=== PATIENT | female | born 1960 | race Caucasian/White ===

== ENCOUNTER 2017-11-04 12:05 | Emergency (ER) | payer OTHER ==
[2017-11-04 12:10] VITALS: BP 123/55; PULSE 104; TEMP 98.1; BMI 32.3
[2017-11-04] MEDS ORDERED: KETOROLAC TROMETHAMINE 60 MG/2 ML VIAL IM ONE (12:59)
[2017-11-04] MEDS ORDERED: KETOROLAC TROMETHAMINE 60 MG/2 ML VIAL ONE (13:05)
--- NOTE | 2017-11-04 13:07 | PDOC ---
History of Present Illness - General Chief Complaint: Back Pain Stated Complaint: FALL/ BACK PAIN Time Seen by Provider: 11/04/17 12:22 History Source: Patient Exam Limitations: No Limitations - History of Present Illness Initial Comments: 11/04/17 13:02 Patient states slipped and fell onto her buttocks last week and since that time has had progressive worsening of pain in her coccyx. Denies numbness or tingling to feet, denies whether injury. Has used ibuprofen with minimal resolved Occurred: reports: last week Associated Symptoms (Fall): denies symptoms Past History - Travel Traveled outside of the country in the last 30 days: No Close contact w/someone who was outside of country & ill: No - Past Medical History Allergies/Adverse Reactions: Allergies Allergy/AdvReac Type Severity Reaction Status Date / Time No Known Allergies Allergy Verified 11/04/17 12:10 Home Medications: Ambulatory Orders Amlodipine Besylate [Norvasc -] 5 mg PO DAILY 09/18/15 Amox-Tr/K Cl [Augmentin - 875Mg Tablet] 1 tab PO BID #14 tablet 09/18/15 Biotin [Nail-Ex] 5,000 mcg PO DAILY 09/18/15 Lisinopril [Prinivil -] 40 mg PO DAILY 09/18/15 COPD: Yes GI Disorders: Yes (ACID REFLUX) HTN: Yes - Surgical History Appendectomy: Yes - Suicide/Smoking/Psychosocial Hx Smoking Status: Yes Smoking History: Current every day smoker Have you smoked in the past 12 months: Yes Number of Cigarettes Smoked Daily: 10 Information on smoking cessation initiated: Yes 'Breaking Loose' booklet given: 11/04/17 Hx Alcohol Use: Yes (occasional) Drug/Substance Use Hx: No Substance Use Type: None *Physical Exam - Vital Signs Last Vital Signs Temp Pulse Resp BP Pulse Ox 98.1 F 104 H 19 123/55 98 11/04/17 12:08 11/04/17 12:08 11/04/17 12:08 11/04/17 12:08 11/04/17 12:08 - Physical Exam General Appearance: Yes: Appropriately Dressed, Apparent Distress, Mild Distress HEENT: positive: YARELI, Normal ENT Inspection, TMs Normal, Pharynx Normal Neck: positive: Supple. negative: Tender Respiratory/Chest: negative: Chest Tender Musculoskeletal: positive: Normal Inspection, Vertebral Tenderness (he shouldn' t with exquisite point tenderness deep lower coccyx area without obvious crepitus or step-offs. Range of motion is limited secondary to the same pain. Illnesses stable, patient is ambulatory slowly) Extremity: positive: Normal Capillary Refill, Normal Inspection Integumentary: positive: Normal Color, Dry, Warm Neurologic: positive: portable irrigation operator II-XII NML intact, Fully Oriented, Alert, Normal Mood/ Affect, Normal Response, Motor Strength 5/5 Progress Note - Progress Note Progress Note: Conservative measures. All clinical indication of a fractured tailbone *DC/Admit/Observation/Transfer Diagnosis at time of Disposition: Fracture of coccyx Qualifiers: Encounter type: initial encounter Fracture type: closed Qualified Code(s): S32.2XXA - Fracture of coccyx, initial encounter for closed fracture - Discharge Dispostion Disposition: HOME Condition at time of disposition: Stable Admit: No - Referrals Referrals: Boby Croft MD [Primary Care Provider] - - Patient Instructions Printed Discharge Instructions: DI for Coccyx Fracture Additional Instructions: Rest, avoid heavy lifting or strenuous activity until pain resolves Ice To area Donut pillow To sit on to help relieve pressure on tailbone May use ibuprofen for pain relief - Post Discharge Activity Forms/Work/School Notes: Back to Work
== END 2017-11-04 13:10 | disposition home or self-care (01) ==
LOC: JERFT 12:05
PROC: 3E0233Z Introduction of Anti-inflammatory into Muscle, Percutaneous Approach (ICD-10-PCS; principal; 2017-11-04)
DX: S32.2XXA Fracture of coccyx, initial encounter for closed fracture (principal); W01.0XXA Fall on same level from slipping, tripping and stumbling without subsequent striking against object, initial encounter; Y93.89 Activity, other specified; Y92.89 Other specified places as the place of occurrence of the external cause; Y99.8 Other external cause status; I10 Essential (primary) hypertension; K21.9 Gastro-esophageal reflux disease without esophagitis; J44.9 Chronic obstructive pulmonary disease, unspecified; F17.210 Nicotine dependence, cigarettes, uncomplicated
CPT/HCPCS: 99281-25

== ENCOUNTER 2018-04-03 05:55 | Inpatient (IN) | payer OTHER ==
--- NOTE | 2018-04-03 06:19 | PDOC ---
History of Present Illness - General Chief Complaint: Injury Stated Complaint: RIGHT ANKLE INJURY Time Seen by Provider: 04/03/18 05:59 History Source: Patient Exam Limitations: No Limitations - History of Present Illness Initial Comments: 04/03/18 06:13 57f with pmh of left ankle repair presents to the ED bibems after trip and fall in her home when she felt her right ankle twist and crack. She went to bed and tried to sleep it off "like a true Irishwoman". When she woke up, she tried to bear weight on her ankle and immediately collapsed, unable to support any weight on the now discombobulated joint. 04/03/18 06:19 Past History - Past Medical History Allergies/Adverse Reactions: Allergies Allergy/AdvReac Type Severity Reaction Status Date / Time No Known Allergies Allergy Verified 04/03/18 06:09 Home Medications: Ambulatory Orders Amlodipine Besylate [Norvasc -] 5 mg PO DAILY 09/18/15 Amox-Tr/K Cl [Augmentin - 875Mg Tablet] 1 tab PO BID #14 tablet 09/18/15 Biotin [Nail-Ex] 5,000 mcg PO DAILY 09/18/15 Lisinopril [Prinivil -] 40 mg PO DAILY 09/18/15 COPD: Yes GI Disorders: Yes (ACID REFLUX) HTN: Yes - Surgical History Appendectomy: Yes - Suicide/Smoking/Psychosocial Hx Smoking Status: Yes Smoking History: Never smoked Have you smoked in the past 12 months: No Number of Cigarettes Smoked Daily: 10 Information on smoking cessation initiated: No 'Breaking Loose' booklet given: 11/04/17 Hx Alcohol Use: No Drug/Substance Use Hx: No Substance Use Type: None *Physical Exam - Vital Signs Last Vital Signs Temp Pulse Resp BP Pulse Ox 97.7 F 85 18 141/86 98 04/03/18 05:55 04/03/18 05:55 04/03/18 05:55 04/03/18 05:55 04/03/18 05:55 ED Treatment Course - RADIOLOGY Radiology Studies Ordered: Category Date Time Status ANKLE-RIGHT [RAD] Stat Radiology 04/03/18 06:12 Ordered Medical Decision Making - Medical Decision Making 04/03/18 06:49 PAin declines pain medication, Ankle x-ray positive for communited, mildy displaced tib-fib ankle fracture. Paged Orthopedic surgeon Dr. Quiroz. Edgar Iglesiasadi, will call back at 8am. 04/03/18 07:13 Patient signed out to Dr. Smith. *DC/Admit/Observation/Transfer Diagnosis at time of Disposition: Fracture of right tibia and fibula - Discharge Dispostion Condition at time of disposition: Fair - Referrals - Patient Instructions - Post Discharge Activity
--- NOTE | 2018-04-03 06:57 | PDOC ---
Attending Attestation - Resident Resident Name: Mark Siddiqi - ED Attending Attestation I have performed the following: I have examined & evaluated the patient, The case was reviewed & discussed with the resident, I agree w/resident's findings & plan - HPI HPI: 04/03/18 06:57 57 YOF with HTN, prior smoker p/w trip and fall, twist to right foot with swelling and progressive pain. unable to ambulate - Physicial Exam PE: 04/03/18 06:54 General: NAD, well appearing Vascular: 2+ DP pulses symmetric and equal. Focused MSK/Neuro Exam notable for soft compartments, +Right ankle,lat/medial malleolar and diffuse ecchymosis, tenderness and swelling; Cap refill <2 sec. Proximal and distal strength 5/5, - equal and symmetric. Plantar flexion and dorsiflexion 5/5. ROM limited 2/2 pain and swelling. Sensation grossly intact to light touch over tibial and peroneal nerves. No calf tenderness. no prox fibular tenderness Skin: mild ecchymosis to right ankle, warm and well perfused. 04/03/18 07:00 04/03/18 07:13 - Medical Decision Making 04/03/18 06:56 57 YOF with HTN, prior smoker p/w trip and fall, twist to right foot with swelling and progressive pain. unable to ambulate, no weakness, paresthesias. vital signs normal. declines meds XR with right distal tib fib fx, appears as Cadena class B. ortho cs with Dr. Morgan/[facility], awaiting callback admit to Dr Croft. likely operative management given extent of injury. preop labs and Txs ordered. 04/03/18 06:58
--- NOTE | 2018-04-03 07:20 | PDOC ---
*Physical Exam - Vital Signs Last Vital Signs Temp Pulse Resp BP Pulse Ox 97.7 F 85 18 141/86 98 04/03/18 05:55 04/03/18 05:55 04/03/18 05:55 04/03/18 05:55 04/03/18 05:55 04/03/18 07:19 Continuation of care from Dr. Siddiqi. Spoke to Dr. Croft's nurse practitioner who will admit Ms. Mendez to obs. 04/03/18 10:[address] Quiroz. He states she will have surgery tomorrow. Will have a posterior splint applied with elevation of the right ankle. ED Treatment Course - LABORATORY CBC & Chemistry Diagram: 04/03/18 09:20 04/03/18 07:18 Medical Decision Making - Medical Decision Making 04/03/18 07:20 Awaiting call back from Dr. Quiroz regarding consult. *DC/Admit/Observation/Transfer Diagnosis at time of Disposition: Trimalleolar fracture Qualifiers: Encounter type: initial encounter Fracture type: closed Laterality: right Qualified Code(s): S82.851A - Displaced trimalleolar fracture of right lower leg , initial encounter for closed fracture - Discharge Dispostion Decision to Admit order: Yes - Referrals Referrals: Boby Croft MD [Primary Care Provider] - - Patient Instructions - Post Discharge Activity
[2018-04-03] MEDS ORDERED: morphine CARPU-JECT 2 MG/1 ML DISP.SYRIN IVPUSH ONE ×2 (07:35→11:02)
[2018-04-03] MEDS ORDERED: MORPHINE SULFATE 2 MG/ML VIAL ONE ×2 (07:37→11:33)
[2018-04-03 07:50] LABS: INR 1.01 (0.83-1.09); PROTHROMBIN TIME (PATIENT) 11.4 SEC (9.7-13.0)
[2018-04-03 07:52] LABS: ACTIVATED PTT 25.6 SECONDS (25.2-36.5)
[2018-04-03 07:53] LABS: ALBUMIN 4.2 g/dl (3.4-5.0); ANION GAP 14 (8-16); BILIRUBIN,TOTAL 0.2 mg/dL (0.2-1.0); BLOOD UREA NITROGEN 24 mg/dL (7-18); CHLORIDE 99 mmol/L (98-107); CO2 26 mmol/L (21-32); CREATININE 1.3 mg/dL (0.55-1.02); GLUCOSE,RANDOM 113 mg/dL (74-106); SGPT/ALT 79 U/L (12-78); SODIUM 139 mmol/L (136-145); TOT PROT 8.1 g/dl (6.4-8.2)
[2018-04-03 07:54] LABS: ALK PHOS 70 U/L (45-117)
[2018-04-03 08:00] LABS: POTASSIUM 4.3 mmol/L (3.5-5.1); SGOT/AST 79 U/L (15-37)
[2018-04-03] MEDS ORDERED: ACETAMINOPHEN 325 MG TABLET (FP) PO PRN (09:11)
[2018-04-03] MEDS ORDERED: traMADol HCL 50 MG TABLET PO PRN (09:11)
[2018-04-03] MEDS ORDERED: DOCUSATE SODIUM 100 MG CAPSULE (FP) PO PRN (09:11)
--- NOTE | 2018-04-03 09:15 | HP ---
Admitting History and Physical - Primary Care Physician PCP: Boby Croft - Admission Chief Complaint: Right ankle trauma History of Present Illness: 57f with pmh of left ankle repair presents to the ED bibems after trip and fall in her home when she felt her right ankle twist and crack. She went to bed and tried to sleep it off "like a true Irishwoman". When she woke up, she tried to bear weight on her ankle and immediately collapsed, unable to support any weight on the now discombobulated joint. History Source: Patient, Medical Record Limitations to Obtaining History: No Limitations - Smoking History Smoking history: Never smoked Have you smoked in the past 12 months: No Aproximately how many cigarettes per day: 10 - Alcohol/Substance Use Hx Alcohol Use: No Home Medications - Allergies Allergies/Adverse Reactions: Allergies Allergy/AdvReac Type Severity Reaction Status Date / Time No Known Allergies Allergy Verified 04/03/18 06:09 - Home Medications Home Medications: Ambulatory Orders Amlodipine Besylate [Norvasc -] 5 mg PO DAILY 09/18/15 Lisinopril [Prinivil -] 40 mg PO DAILY 09/18/15 Omeprazole 40 mg PO DAILY 04/03/18 Review of Systems - Review of Systems Constitutional: reports: No Symptoms Eyes: reports: No Symptoms HENT: reports: No Symptoms Neck: reports: No Symptoms Cardiovascular: reports: No Symptoms Respiratory: reports: No Symptoms Gastrointestinal: reports: No Symptoms Genitourinary: reports: No Symptoms Breasts: reports: No Symptoms Reported Musculoskeletal: reports: Joint Pain (right ankle) Integumentary: reports: No Symptoms Neurological: reports: No Symptoms Endocrine: reports: No Symptoms Hematology/Lymphatic: reports: No Symptoms Physical Examination Vital Signs: Vital Signs Temperature 97.7 F 04/03/18 05:55 Pulse Rate 85 04/03/18 05:55 Respiratory Rate 18 04/03/18 05:55 Blood Pressure 141/86 04/03/18 05:55 O2 Sat by Pulse Oximetry (%) 98 04/03/18 05:55 Constitutional: Yes: Well Nourished, No Distress, Calm, Obese Cardiovascular: Yes: Regular Rate and Rhythm Respiratory: Yes: Regular Gastrointestinal: Yes: Normal Bowel Sounds, Soft Musculoskeletal: Yes: Joint Swelling (right ankle) Extremities: Yes: WNL Labs: CBC, BMP 04/03/18 07:18 04/03/18 07:18
[2018-04-03 09:37] LABS: BASO % 0.7 % (0-2.0); EOS % 0.5 % (0-4.5); HEMATOCRIT 34.7 % (32.4-45.2); HEMOGLOBIN 11.5 GM/dL (10.7-15.3); LYMPH % 27.1 % (8-40); MCH 26.4 pg (25.7-33.7); MEAN CELL VOLUME 79.9 fl (80-96); MEAN PLT VOLUME 8.3 fl (7.5-11.1); MONO % 7.5 % (3.8-10.2); NEUT % 64.2 % (42.8-82.8); PLATELET COUNT 221 K/MM3 (134-434); RBC 4.34 M/mm3 (3.60-5.2); RDW 20.4 % (11.6-15.6); WHITE BLOOD COUNT 9.3 K/mm3 (4.0-10.0)
[2018-04-03] MEDS: DEXTROSE 5%-0.45% SALINE 1,000 ML IV SCH ×2 (09:40→22:24)
[2018-04-03] MEDS ORDERED: PANTOPRAZOLE SODIUM 40 MG in SODIUM CHLORIDE 100 ML IVPB SCH (10:00)
[2018-04-03] MEDS ORDERED: LISINOPRIL 20 MG TABLET (FP) ONE (11:05)
[2018-04-03] MEDS ORDERED: PANTOPRAZOLE SODIUM 40 MG/100 ML BAG IVPB ONE (11:05)
[2018-04-03] MEDS ORDERED: amLODIPine BESYLATE 5 MG TABLET (FP) ONE (11:05)
[2018-04-03] MEDS ORDERED: HEPARIN NA (PORCINE) 5,000 UNITS/ML 1ML VIAL ONE (11:06)
[2018-04-03] MEDS: LISINOPRIL 20 MG TABLET (FP) PO SCH (11:13)
[2018-04-03] MEDS: HEPARIN NA (PORCINE) 5,000 UNITS/ML 1ML VIAL SQ SCH ×2 (11:13→22:15)
[2018-04-03] MEDS: PANTOPRAZOLE SODIUM 40 MG VIAL IVPUSH SCH (11:13)
[2018-04-03] MEDS: amLODIPine BESYLATE 5 MG TABLET (FP) PO SCH (11:13)
--- NOTE | 2018-04-03 11:22 | PN ---
Progress Note (short form) - Note Progress Note: Pt seen and examined in the ER. She is a 57 year old female s/p twisting fall this morning, injured right ankle. Ex smoker, stopped after 30 years in October. + h/o HTN. PE RLE is grossly NVI. Good ROM at the right knee, ankle, foot, toes + swelling globally around the right ankle + tender globally around the right ankle Xrays Show a displaced and rotated right ankle bimalleolar fracture Imp 57 year old female with an acute right ankle bimall fracture Rec I spoke to ER staff and rep for PMD about splinting and medical clearance. Strict elevation overnight Will put on the add on schedule for surgery for tomorrow. NPO after midnight tonight.
[2018-04-03] MEDS ORDERED: oxyCODONE HCL 5 MG TABLET ONE (16:14)
[2018-04-03] MEDS: oxyCODONE HCL 5 MG TABLET PO PRN ×2 (16:15→22:15)
[2018-04-03 19:09] VITALS: BMI 35.2
[2018-04-04] MEDS: oxyCODONE HCL 5 MG TABLET PO PRN (07:00)
[2018-04-04 07:58] LABS: BASO % 0.9 % (0-2.0); EOS % 3.1 % (0-4.5); HEMATOCRIT 29.7 % (32.4-45.2); LYMPH % 42.3 % (8-40); MCHC 33.5 g/dl (32.0-36.0); MEAN CELL VOLUME 80.6 fl (80-96); MEAN PLT VOLUME 8.8 fl (7.5-11.1); MONO % 13.6 % (3.8-10.2); NEUT % 40.1 % (42.8-82.8); PLATELET COUNT 165 K/MM3 (134-434); RBC 3.68 M/mm3 (3.60-5.2); RDW 20.4 % (11.6-15.6); WHITE BLOOD COUNT 4.8 K/mm3 (4.0-10.0)
[2018-04-04 08:22] LABS: ANION GAP 7 (8-16); BLOOD UREA NITROGEN 19 mg/dL (7-18); CALCIUM 8.7 mg/dL (8.5-10.1); CHLORIDE 103 mmol/L (98-107); CO2 30 mmol/L (21-32); CREATININE 0.9 mg/dL (0.55-1.02); GLUCOSE,RANDOM 91 mg/dL (74-106); POTASSIUM 3.3 mmol/L (3.5-5.1); SODIUM 140 mmol/L (136-145)
--- NOTE | 2018-04-04 08:36 | PN ---
Progress Note, Physician Chief Complaint: EVENTS AND NOTES REVIEWED PATIENT HAS EGG ALLERGY NO CONTRAINDICATIONS INT HE PAST WITH SURGERY HAS NEVER HAD ANY CARDIAC OR PULMONARY ISSUES H/O TOBACCO USE - Current Medication List Current Medications: Active Medications Acetaminophen (Tylenol -) 650 mg PO Q4H PRN PRN Reason: PAIN OR FEVER Last Admin: 04/03/18 22:17 Dose: 650 mg Amlodipine Besylate (Norvasc -) 5 mg PO DAILY [facility] Last Admin: 04/03/18 11:13 Dose: 5 mg Docusate Sodium (Colace -) 100 mg PO BID PRN PRN Reason: CONSTIPATION Heparin Sodium (Porcine) (Heparin -) 5,000 unit SQ BID [facility] Last Admin: 04/03/18 22:15 Dose: 5,000 unit Dextrose/Sodium Chloride (D5-1/2ns -) 1,000 mls @ 75 mls/hr IV ASDIR [facility] Last Admin: 04/03/18 22:24 Dose: 75 mls/hr Potassium Chloride (Potassium Chloride 10 Meq Premix Ivpb -) 10 meq in 100 mls @ 100 mls/hr IVPB Q60M [facility] Stop: 04/04/18 09:29 Lisinopril (Prinivil) 40 mg PO DAILY [facility] Last Admin: 04/03/18 11:13 Dose: 40 mg Oxycodone HCl (Roxicodone -) 5 mg PO Q6H PRN PRN Reason: PAIN LEVEL 7 - 10 Last Admin: 04/04/18 07:00 Dose: 5 mg Pantoprazole Sodium (Protonix Iv) 40 mg IVPUSH DAILY [facility] Last Admin: 04/03/18 11:13 Dose: 40 mg Tramadol HCl (Ultram -) 50 mg PO Q6H PRN PRN Reason: PAIN LEVEL 4 - 6 Last Admin: 04/03/18 20:00 Dose: 50 mg - Objective Vital Signs: Vital Signs Temperature 97.8 F 04/04/18 06:00 Pulse Rate 85 04/04/18 06:00 Respiratory Rate 17 04/04/18 06:00 Blood Pressure 147/79 04/04/18 06:00 O2 Sat by Pulse Oximetry (%) 95 04/03/18 21:00 Constitutional: Yes: Mild Distress Eyes: Yes: WNL HENT: Yes: WNL Neck: Yes: WNL Cardiovascular: Yes: WNL Respiratory: Yes: WNL Gastrointestinal: Yes: WNL Genitourinary: Yes: WNL Musculoskeletal: Yes: Joint Stiffness Extremities: Yes: Other Edema: No Peripheral Pulses WNL: Yes Integumentary: Yes: WNL Wound/Incision: Yes: Clean/Dry Neurological: Yes: WNL ...Motor Strength: RLE Psychiatric: Yes: WNL Labs: CBC, BMP 04/04/18 07:00 04/04/18 07:00 INR, PTT INR 1.01 (0.83-1.09) 04/03/18 07:18 Problem List - Problems (1) Trimalleolar fracture Code(s): S82.853A - DISPLACED TRIMALLEOLAR FRACTURE OF UNSP LOWER LEG, INIT Qualifiers: Encounter type: initial encounter Fracture type: closed Laterality: right Qualified Code(s): S82.851A - Displaced trimalleolar fracture of right lower leg, initial encounter for closed fracture Assessment/Plan MEDICALLY CLEARED FOR RIGHT ANKLE ORIF NO CONTRAINDICATIONS TO SURGERY HOWEVER WOULD DOCUMENT EGG ALLERGY FORMER TOBACCO USER WILL ORDER NEBS MONITOR ANESTHESIS FOR LUNG H/O SMOKERS DISEASE WITH LUNG NODULE IN PAST THAT WILL NEED OUTPATIENT F/U FOR WITH PULMONARY AND PMD
--- NOTE | 2018-04-04 08:53 | PN ---
Progress Note (short form) - Note Progress Note: Ortho Pt seen and examined- for OR today splint intact, nvi a/p OR NPO d/w Dr. Quiroz
[2018-04-04] MEDS: PANTOPRAZOLE SODIUM 40 MG VIAL IVPUSH SCH ×2 (08:58→10:00)
[2018-04-04] MEDS ORDERED: KCL 10 MEQ IVPB 10 MEQ/100 ML INFUS.BAG IVPB SCH (09:00)
[2018-04-04] MEDS ORDERED: DEXAMETHASONE SOD PHOSPHATE/PF 10 MG/ML SDV ONE (09:12)
[2018-04-04] MEDS ORDERED: ROPIVACAINE HCL 0.5% 30ML VIAL ONE (09:12)
[2018-04-04] MEDS ORDERED: MIDAZOLAM HCL 2 MG/2 ML SINGLE DOSE VIAL ONE ×3 (09:13→11:10)
[2018-04-04] MEDS: DEXTROSE 5%-0.45% SALINE 1,000 ML IV SCH (10:06)
[2018-04-04] MEDS: amLODIPine BESYLATE 5 MG TABLET (FP) PO SCH (10:31)
[2018-04-04] MEDS ORDERED: BUPIVACAINE HCL/PF 0.5% (5MG/ML) 10 ML VIAL ONE (11:03)
[2018-04-04] MEDS ORDERED: PROPOFOL 20 ML ONE ×6 (11:26→12:33)
[2018-04-04] MEDS ORDERED: SUCCINYLCHOLINE CHLORIDE 200 MG/10 ML VIAL ONE (11:26)
[2018-04-04] MEDS ORDERED: ceFAZolin SODIUM 1 GM VIAL IVPB ONE (11:34)
[2018-04-04] MEDS: LISINOPRIL 20 MG TABLET (FP) PO SCH (11:48)
[2018-04-04] MEDS: HEPARIN NA (PORCINE) 5,000 UNITS/ML 1ML VIAL SQ SCH (11:48)
[2018-04-04] MEDS ORDERED: LIDOCAINE HCL 2% JELLY (5 ML/TUBE) ONE (11:57)
[2018-04-04] MEDS ORDERED: ceFAZolin SODIUM 1 GM VIAL ONE (11:57)
--- NOTE | 2018-04-04 13:27 | OP ---
Operative Note - Note: Operative Date: 04/04/18 [facility] Pre-Operative Diagnosis: right ankle fx Operation: right ankle orif Post-Operative Diagnosis: Same as Pre-op Surgeon: Peter Quiroz Shredded Filler Cutter Operator: Hola Kuo Anesthesiologist/INTERNET [employer] SPECIALIST: Kennedy Kent Anesthesia: Spinal, Local Estimated Blood Loss (mls): 5 (tourniquet) Operative Report Dictated: Yes
[2018-04-04] MEDS ORDERED: LACTATED RINGERS SOLUTION 1,000 ML IV SCH ×3 (13:30→15:30)
--- NOTE | 2018-04-04 13:43 | EKG ---
Test Reason : Blood Pressure : / mmHG Vent. Rate : 085 BPM Atrial Rate : 085 BPM P-R Int : 160 ms QRS Dur : 076 ms QT Int : 364 ms P-R-T Axes : 049 021 027 degrees QTc Int : 433 ms NORMAL SINUS RHYTHM CANNOT RULE OUT ANTERIOR INFARCT , AGE UNDETERMINED ABNORMAL ECG WHEN COMPARED WITH ECG OF 27-MAR-2013 08:44, NONSPECIFIC T WAVE ABNORMALITY NO LONGER EVIDENT IN LATERAL LEADS Confirmed by MARIAM BROWN MD ([id number]) on 04/04/2018 1:43:14 PM Referred By: Confirmed By:MARIAM BROWN MD
[2018-04-04] MEDS ORDERED: DOCUSATE SODIUM 100 MG CAPSULE (FP) PO PRN (14:15)
[2018-04-04] MEDS ORDERED: oxyCODONE HCL 5 MG TABLET PO PRN (14:15)
[2018-04-04] MEDS ORDERED: DEXTROSE 5%-0.45% SALINE 1,000 ML IV SCH (14:15)
[2018-04-04] MEDS ORDERED: traMADol HCL 50 MG TABLET PO PRN (14:15)
[2018-04-04] MEDS ORDERED: ACETAMINOPHEN 325 MG TABLET (FP) PO PRN (14:15)
[2018-04-04] MEDS ORDERED: ONDANSETRON 4 MG/2 ML VIAL IVPUSH PRN (15:22)
[2018-04-04] MEDS ORDERED: LISINOPRIL 20 MG TABLET (FP) PO SCH (15:45)
[2018-04-04] MEDS ORDERED: amLODIPine BESYLATE 5 MG TABLET (FP) PO SCH (15:45)
[2018-04-04 17:14] VITALS: BP 141/84; PULSE 92; TEMP 99
--- NOTE | 2018-04-04 20:29 | OP ---
DATE OF OPERATION: 04/04/2018 PREOPERATIVE DIAGNOSIS: bimalleolar ankle fracture. POSTOPERATIVE DIAGNOSIS: bimalleolar ankle fracture. PROCEDURE: Right ankle bimalleolar open reduction and internal fixation. SURGEON: Greta Mendez MD COVERAGE ANALYST: AIDEN Carson DRAINS: None. COMPLICATIONS: None. IMPLANTS: Lang low-profile distal fibular pre-contoured plate with 7 screws, both locking and non-locking and two 4.0-mm cannulated screws with 1 washer on the medial aspect of the ankle, 55 and 60 mm in length. BLOOD LOSS: None. BLOOD GIVEN: None. FLUID REPLACEMENT: 700 mL SPECIMEN: None. The patient is a 57-year-old female with a preoperative diagnosis of a displaced right ankle bimalleolar ORIF. After understanding the potential risks, complications, alternatives, and benefits of surgery versus nonsurgical treatment, the patient elected to undergo this procedure. Patient understands she may have permanent stiffness, decreased range of motion and function; she may need extensive physical therapy. There is a risk of infection. There is a risk of hardware breakage. There is a risk of need for hardware removal and additional surgeries. She also is at increased risk for posttraumatic arthritis. The ankle may never feel the same; she understands that. The patient was brought into the operating room, peripheral IV placed, IV sedation given. Spinal anesthesia was induced. Ample Webril was placed around the right thigh. Tourniquet was applied. Right lower extremity was prepped and draped in sterile fashion. Deep MAC anesthesia was induced. The right lower extremity was then elevated, exsanguinated with an Esmarch bandage, tourniquet inflated to 275 mmHg. First, the fractures were appreciated under the C-arm fluoroscopy. Next, a long distal fibular incision was made. Subcutaneous hemostasis achieved with the Bovie cautery. Dissection done down through the periosteum and the lateral aspect of the distal fibula. Anterior and posterior flaps were raised with a flores elevator. This exposed the fracture site. The area was copiously irrigated and washed out and a small curette used to remove soft tissue debris from the fracture site. Next, I used 1 alligator forceps to reduce the fracture. It came together quite nicely. There was a small area of comminution at the fracture site. It was a long oblique fracture pattern. X-rays were taken, documenting excellent reduction of both the lateral and medial malleolar fractures. Next, using standard technique, I put in 2 lag screws, first drilling with a 2.5-mm drill with an overdrilling of proximal cortex with 3.5-mm drill. These were both non-locking screws of 20 mm in length. The alligator forceps was removed. The lag screws were holding the fracture in place. I then put on a long, titanium Lang low-profile, pre-contoured distal fibular plate. The fracture was high. That is why the plate was long. I held it in place. I bent it a bit for better contour. X-rays were taken. It looked excellent, and therefore, it was held in place proximally with the alligator forceps. Distally, I put in 3 distal locking screws and 1 slightly more proximal locking screw. There were four in all distally, all unicortical from 10 to 14 mm in length. Next, I put in a non-locking bicortical 12-mm screw proximal to the fracture site. The forceps was removed, and x-rays were taken in the AP, lateral, and multiple oblique planes. Overall, it looked quite good. Therefore, 4 screws were put in proximally for 7 cortices total. The area was copiously irrigated and washed out. X-rays were taken. Overall, it looked quite good. Closure was done with 0 Vicryl through the fascia over the plate, then 2-0 Vicryl in the deep dermal layer, then a final skin reapproximation done with jaron. Next, our attention turned to the medial side. Already, the reduction was holding quite well. The ankle was held in position of 90 degrees dorsiflexion, and under direct C-arm fluoroscopy guidance, I put in two 4.0-mm partially threaded screws, one with a washer because the bone was soft, of 55 and 60 mm in length. I felt like I got good compression. It was holding the medial malleolar fragment in place. X-rays were taken in the AP, lateral, and multiple oblique planes. Overall, it looked quite good. This incision was washed out and closed with 2-0 Vicryl and jaron. Next, I put on Xeroform gauze, 4 x 4 gauze, Webril, and a posterior splint with an AO. Side bar was placed, wrapped with 2 Star bandages. Tourniquet was taken down after total tourniquet time of 75 minutes. There were no complications during the case. The patient tolerated the procedure quite well and was brought to the ambulatory recovery room in stable condition. GRETA MENDEZ M.D. [id number]
[2018-04-05] MEDS ORDERED: PANTOPRAZOLE SODIUM 40 MG VIAL IVPUSH SCH (10:00)
[2018-04-05] MEDS ORDERED: LISINOPRIL 20 MG TABLET (FP) PO SCH (10:00)
[2018-04-05] MEDS ORDERED: amLODIPine BESYLATE 5 MG TABLET (FP) PO SCH (10:00)
== END 2018-04-04 20:00 | disposition home or self-care (01) | DRG 313 ==
LOC: JER 05:55 → JERBED 10:23 → J8W 17:52 → OBSVTOIN 04-04 08:30
PROVIDERS: ADMIT Family Medicine; ATTEND Family Medicine
PROC: 0QSG04Z Reposition Right Tibia with Internal Fixation Device, Open Approach (ICD-10-PCS; 2018-04-04)
PROC: 0QSJ04Z Reposition Right Fibula with Internal Fixation Device, Open Approach (ICD-10-PCS; principal; 2018-04-04 11:00)
DX: S82.841A Displaced bimalleolar fracture of right lower leg, initial encounter for closed fracture (principal); W01.0XXA Fall on same level from slipping, tripping and stumbling without subsequent striking against object, initial encounter; Y92.098 Other place in other non-institutional residence as the place of occurrence of the external cause; I10 Essential (primary) hypertension; E66.9 Obesity, unspecified; Z68.35 Body mass index [BMI] 35.0-35.9, adult; Z87.891 Personal history of nicotine dependence
CPT/HCPCS: 36415; 73560-TC-RT-FY; 73610-TC-RT-FY; 76000-TC-FY; 80048; 80053; 85025; 85610; 85730; 86850; 86900; 86901; 93005; 93010; 94760; 99285-25; G0378; J1644

== ENCOUNTER 2021-10-17 08:57 | Day surgery (SDC) | payer OTHER ==
[2021-10-14 17:25] VITALS: BMI 30.9
[~2021-10-17 08:57] MED LIST: ACETAMINOPHEN 325 MG TABLET (FP) PO PRN; IBUPROFEN 400 MG TABLET (FP) PO PRN
[2021-10-17 10:45] VITALS: TEMP 98.1
[2021-10-17] MEDS ORDERED: BUPIVACAINE HCL/PF 0.25% (2.5MG/ML) 10 ML VIAL ONE (11:26)
[2021-10-17] MEDS ORDERED: fentaNYL CITRATE 250 MCG/5 ML VIAL ONE (11:32)
[2021-10-17] MEDS ORDERED: LIDOCAINE HCL/PF 2% SDV 5ML VIAL ONE (11:32)
[2021-10-17] MEDS ORDERED: PROPOFOL 20 ML ONE (11:33)
[2021-10-17] MEDS ORDERED: MIDAZOLAM HCL 2 MG/2 ML SINGLE DOSE VIAL ONE (11:33)
[2021-10-17] MEDS ORDERED: ceFAZolin SODIUM 1 GM VIAL ONE (11:55)
[2021-10-17] MEDS ORDERED: ONDANSETRON 4 MG/2 ML VIAL ONE (11:58)
[2021-10-17] MEDS ORDERED: BUPIVACAINE HCL/PF 0.25% (2.5MG/ML) 10 ML VIAL IJ ONE (12:05)
[2021-10-17 13:15] VITALS: BP 129/79; PULSE 83
== END 2021-10-17 13:00 | disposition home or self-care (01) ==
LOC: FASU 08:57
PROVIDERS: ATTEND Orthopaedic Surgery
PROC: 3E0U3GC Introduction of Other Therapeutic Substance into Joints, Percutaneous Approach (ICD-10-PCS; 2021-10-17)
PROC: 0LNK0ZZ Release Left Hip Tendon, Open Approach (ICD-10-PCS; principal; 2021-10-17 10:45)
DX: M76.02 Gluteal tendinitis, left hip (principal)
CPT/HCPCS: 0232T; 27006

== ENCOUNTER 2022-09-18 07:12 | Emergency (ER) | payer OTHER ==
[2022-09-18 07:37] VITALS: BP 131/85; TEMP 97.7; BMI 29.0
[2022-09-18 08:24] VITALS: PULSE 105; RESP 20
== END 2022-09-18 08:24 | disposition home or self-care (01) ==
LOC: JER 07:12 → JERFT 07:12
DX: M25.571 Pain in right ankle and joints of right foot (principal)
CPT/HCPCS: 73610-TC-RT-FY; 73630-TC-RT-FY; 99283-25

== ENCOUNTER 2022-11-20 11:23 | Day surgery (SDC) | payer OTHER ==
[2022-11-18 11:21] VITALS: BMI 29.8
[2022-11-20] MEDS ORDERED: MIDAZOLAM HCL 2 MG/2 ML SINGLE DOSE VIAL ONE ×4 (12:24→15:06)
[2022-11-20] MEDS ORDERED: BUPIVACAINE HCL/PF 0.5% (5MG/ML) 10 ML VIAL ONE (12:29)
[2022-11-20] MEDS ORDERED: ONDANSETRON 4 MG/2 ML VIAL ONE ×2 (13:03→15:41)
[2022-11-20] MEDS ORDERED: DEXAMETHASONE SOD PHOSPHATE 4 MG/1 ML VIAL ONE (13:03)
[2022-11-20] MEDS ORDERED: ceFAZolin SODIUM 1 GM VIAL ONE (13:11)
[2022-11-20] MEDS ORDERED: VANCOMYCIN 1,000 MG VIAL (RESTRICTED TO ID ONLY) ONE (14:31)
[2022-11-20] MEDS ORDERED: PROPOFOL 20 ML ONE (15:21)
[2022-11-20] MEDS ORDERED: KETOROLAC TROMETHAMINE 30 MG/1 ML VIAL ONE (15:22)
[2022-11-20] MEDS ORDERED: oxyCODONE HCL 5 MG TABLET PO PRN (15:57)
[2022-11-20] MEDS ORDERED: ONDANSETRON 4 MG/2 ML VIAL IVPUSH PRN (15:57)
[2022-11-20] MEDS ORDERED: LACTATED RINGERS SOLUTION 1,000 ML IV SCH (16:00)
[2022-11-20] MEDS ORDERED: FENTANYL CITRATE/PF 50 MCG/ML VIAL ONE (16:07)
[2022-11-20 16:37] VITALS: RESP 18
[2022-11-20 16:55] VITALS: TEMP 97.7
[2022-11-20 17:13] VITALS: BP 112/67; PULSE 105
== END 2022-11-20 17:15 | disposition home or self-care (01) ==
LOC: FASU 11:23
PROVIDERS: ATTEND Orthopaedic Surgery
PROC: 0MBM0ZZ Excision of Left Hip Bursa and Ligament, Open Approach (ICD-10-PCS; principal; 2022-11-20 13:21)
DX: S76.312A Strain of muscle, fascia and tendon of the posterior muscle group at thigh level, left thigh, initial encounter (principal); M76.02 Gluteal tendinitis, left hip; M70.62 Trochanteric bursitis, left hip; X58.XXXA Exposure to other specified factors, initial encounter; Y93.9 Activity, unspecified; Y92.9 Unspecified place or not applicable
CPT/HCPCS: 94760; C1713; C1883

== ENCOUNTER 2023-08-01 02:28 | Emergency (ER) | payer OTHER ==
[2023-08-01 02:38] VITALS: BP 146/97; PULSE 73; RESP 18; TEMP 97.6; BMI 28.7
[2023-08-01] MEDS ORDERED: METHOCARBAMOL 500 MG TABLET PO ONE (03:08)
[2023-08-01] MEDS ORDERED: METHOCARBAMOL 500 MG TABLET ONE (03:45)
[2023-08-01] MEDS ORDERED: ACETAMINOPHEN 325 MG TABLET (FP) PO ONE (04:05)
[2023-08-01] MEDS ORDERED: LIDOCAINE 5% TOPICAL PATCH TP ONE (04:06)
[2023-08-01] MEDS ORDERED: ACETAMINOPHEN 325 MG TABLET (FP) ONE (04:23)
[2023-08-01] MEDS ORDERED: LIDOCAINE 4% PATCH TP ONE (04:23)
[2023-08-01] MEDS ORDERED: LIDOCAINE PATCH REMOVAL MC SCH (22:00)
== END 2023-08-01 04:53 | disposition home or self-care (01) ==
LOC: JER 02:28
DX: S46.011A Strain of muscle(s) and tendon(s) of the rotator cuff of right shoulder, initial encounter (principal); M54.2 Cervicalgia; W11.XXXA Fall on and from ladder, initial encounter
CPT/HCPCS: 99283-25

== ENCOUNTER 2025-01-05 06:20 | Day surgery (SDC) | payer OTHER ==
[2025-01-03 12:43] VITALS: BMI 29.7
[2025-01-05 07:50] VITALS: RESP 20
[2025-01-05] MEDS: LIDOCAINE HCL 1% PRESERVATIVE FREE - 30ML VIAL IJ ONE ×2 (08:54)
[2025-01-05] MEDS: IOHEXOL 180 MG/1 ML ML IJ ONE ×3 (08:54)
[2025-01-05] MEDS: BUPIVACAINE HCL/PF 0.5% (5 MG/ML) 30 ML VIAL IJ ONE ×4 (08:56)
[2025-01-05] MEDS: TRIAMCINOLONE ACET 40MG/1ML VIAL IM ONE ×4 (08:56)
[2025-01-05 11:23] VITALS: BP 139/84; PULSE 93; TEMP 98
== END 2025-01-05 09:30 | disposition home or self-care (01) ==
LOC: JASU-SURG 06:20
PROVIDERS: ATTEND Pain Medicine Pain Medicine
PROC: 3E0U3BZ Introduction of Anesthetic Agent into Joints, Percutaneous Approach (ICD-10-PCS; 2025-01-05)
PROC: 3E0U33Z Introduction of Anti-inflammatory into Joints, Percutaneous Approach (ICD-10-PCS; principal; 2025-01-05 09:00)
DX: M53.3 Sacrococcygeal disorders, not elsewhere classified (principal)
CPT/HCPCS: 76000-TC-FY

== ENCOUNTER 2025-02-16 07:43 | Emergency (ER) | payer OTHER ==
[2025-02-16 07:52] VITALS: BP 145/91; PULSE 106; RESP 20; TEMP 97.7; BMI 29.0
[2025-02-16 15:07] LABS: HCV DIAGNOSTIC IN-HOUSE W/RFLX NON-REACTIVE (NONREACTIVE); HIV INTERPRETATION NEGATIVE (NEGATIVE)
== END 2025-02-16 10:15 | disposition home or self-care (01) ==
LOC: JERFT 07:43 → JER 07:43 → JERFT 10:15
DX: S92.355A Nondisplaced fracture of fifth metatarsal bone, left foot, initial encounter for closed fracture (principal); X50.1XXA Overexertion from prolonged static or awkward postures, initial encounter
CPT/HCPCS: 36415; 73630-TC-LT; 86803; 87389; 99284-25